=== PATIENT | male | born 1965 | race Caucasian/White ===

== ENCOUNTER 2017-05-06 10:47 | Day surgery (SDC) | payer OTHER ==
[~2017-05-06] VITALS: Ht 175.3 cm; Wt 91.0 kg
[~2017-05-06 10:47] MED LIST: 0.9% Sodium Chloride 1,000 ML IV SCH; ACYC400T2 PO; ALBU90AE IH; DEX1 PO; HYDR-4003 PO; Sodium Chloride LOK Flush 10 mL Syringe IV PRN; fentaNYL-PF 50 mCg/mL 2 mL Inj IVPUSH PRN
[2017-05-06 11:13] VITALS: BP 156/93; PULSE 89; RESP 14; O2SAT 99
--- NOTE | 2017-05-06 11:55 | PCM.ENDCOL ---
Colonoscopy Date of Service: May 06, 2017 Physician Ever Gaviria MD Pre Procedure Diagnosis: Screening Post Procedure Dx & Findings: Polyps hemorrhoids Procedure Colonoscopy PROCEDURE IN DETAIL: Prep adequate Withdrawal time 13 minutes After unremarkable rectal examination the Olympus video colonoscope was inserted patient's anal canal and was advanced to cecum. Landmarks were identified including the ileocecal valve and appendiceal orifice. Scope was withdrawn systematically. Visualized colonic mucosa showed healthy shiny mucosa with normal healthy-appearing vasculature. In the transverse colon, there were total of two polyps. They were 1 mm in size. They are both resected completely using cold forceps. In the sigmoid colon, there was a 2 mm polyp which was removed completely using cold snare. There was 1 mm polyp which was removed completely using cold forceps. The sigmoid colon there were several diverticuli small. In the rectum retroflexion was done which showed hemorrhoids. Anal canal was inspected carefully on the way out and hemorrhoids noted. Impression Polyps 4 status post complete removal Diverticuli Hemorrhoids Recommendation Repeat colonoscopy 3 years Diverticular diet Presedation Assessment Risks and Benefits Informed consent was obtained from the patient after all risks and benefits including but not limited to drug reaction, infection, pain, bleeding, perforation, as well as alternatives were discussed. Patient monitoring Continuous pulse oximetry, cardiac monitoring, blood pressure monitoring, IV access, and oxygen at 2L per nasal cannula. Periprocedural Fentanyl: Fentanyl 125mcg Incrementally Midazolam: Midazolam 6mg Incrementally Complications There were no periprocedural complications identified. Post Procedure Plan Post Procedure Recommendations 1. Restrict activities today. 2. Resume normal activities in the morning. 3. Resume medications. 4. Patient informed of normal post procedure side effects as bloating, drowsiness, blood streaking in the stool. 5. average risk CRCS. If colon polyps come back as: -Hyperplastic- can repeat colonoscopy in 10 years -Tubular adenoma- repeat colonoscopy in 5 years -Tubulovillous/villous adenoma- repeat colonoscopy in 3 years -If any dysplasia- return to clinic as soon as possible 6. Please don't hesitate to call me with any questions. Ever Gaviria MD May 06, 2017 11:55
[2017-05-06 12:00] VITALS: BP 136/82; PULSE 68; RESP 16; O2SAT 97
[2017-05-06 12:10] VITALS: BP 118/78; PULSE 69; RESP 16; O2SAT 97
[2017-05-06 12:20] VITALS: BP 123/85; PULSE 62; RESP 16; O2SAT 96
[2017-05-06 12:30] VITALS: BP 125/83; PULSE 61; RESP 16; O2SAT 99
--- NOTE | 2017-05-07 10:48 | PATH ---
SURGICAL PATHOLOGY Attending Physician:Ever Gaviria M.D. CASE STATUS: Signed Out PATIENT NAME: BRYANT ROJAS PID: [id number] : 1965 DATE COLLECTED:05/06/2017 21:13 SPECIMEN: 1: Colon, Biopsy 2: Colon, Biopsy CLINICAL HISTORY: 1). TRANSVERSE COLON POLYPS 2). SIGMOID COLON POLYPS FINAL DIAGNOSIS: 1.TRANSVERSE COLON POLYPS: TUBULAR ADENOMA INVOLVING SINGLE BIOPSY FRAGMENT. FRAGMENT OF COLON MUCOSA WITH PROMINENT LYMPHOID AGGREGATE, NEGATIVE FOR DYSPLASIA. 2.SIGMOID COLON POLYPS: HYPERPLASTIC POLYP INVOLVING BOTH BIOPSY FRAGMENTS. ICD10 D12.3 GROSS DESCRIPTION: The specimen is received in two formalin filled containers labeled with the patient's name. 1). The specimen is sublabeled "transverse colon polyp" and consists of 2 portions of tissue which aggregate to 0.3 x 0.2 x 0.2 CM. The specimen is entirely submitted in cassette 1A. 2). The specimen is sublabeled "sigmoid colon polyp" and consists of 2 portions of tissue which aggregate to 0.2 x 0.2 x 0.2 CM. The specimen is entirely submitted in cassette 2A. 05/06/2017 [facility] MICRO DESCRIPTION: See diagnosis. ICD-9 CODES: CPT CODES: 1: 26572 2: 34190 Electronically Signed Out Carlos Varma MD [facility] Pathology [facility] [address], [place] [address] Technical component performed at [facility], [address] [place] [address] Ave[address], [place], [address]
== END 2017-05-06 23:59 | disposition home or self-care (01) ==
LOC: END 10:47
PROVIDERS: ATTEND Internal Medicine
DX: Z12.11 Encounter for screening for malignant neoplasm of colon (principal); D12.3 Benign neoplasm of transverse colon; K63.5 Polyp of colon; K64.9 Unspecified hemorrhoids; K57.90 Diverticulosis of intestine, part unspecified, without perforation or abscess without bleeding
CPT/HCPCS: 45380; 45385; 99153; G0500; J7030